=== PATIENT | male | born 1965 | race Caucasian/White ===

== ENCOUNTER 2017-10-17 10:43 | Outpatient (CLI) | payer BC | END 2017-10-17 20:45 | disposition home or self-care (01) | LOC: SRD 10:43 | PROVIDERS: ATTEND Family Medicine | DX: M47.894 Other spondylosis, thoracic region (principal); M47.896 Other spondylosis, lumbar region; R10.2 Pelvic and perineal pain; R63.5 Abnormal weight gain | CPT/HCPCS: 72072-TC; 72100-TC; 72170-TC; 74018 ==